=== PATIENT | female | born 1940 | race Caucasian/White ===

== ENCOUNTER 2018-12-12 02:09 | Emergency (ER) | payer MEDICARE ==
[~2018-12-12] VITALS: Ht 162.6 cm; Wt 80.6 kg
[~2018-12-12 02:09] MED LIST: ASPI-496 PO; DIPH25CA61 PO; FEXO60TA9 PO; LOSA25TA25 PO; MELA5TAB19 PO; METF500T17 PO; METO25TA2 PO; OMEP-110 PO; RALO60TA12 PO; ROSU10TA2 PO; TIZA2CAP2 PO; TRAM-47 PO
[2018-12-12] MEDS ORDERED: ROSU5TAB PO (02:38)
[2018-12-12] MEDS ORDERED: GLIP2.5T16 PO (02:38)
[2018-12-12] MEDS ORDERED: GABA300C10 PO (02:38)
[2018-12-12] MEDS ORDERED: ONDA4TAB7 PO (02:38)
[2018-12-12] MEDS ORDERED: LEVO88TA4 PO (02:38)
[2018-12-12] MEDS ORDERED: SODIUM CHLORIDE FLUSH 10ML SYR IVF ONE (03:00)
--- NOTE | 2018-12-12 03:15 | NUR ---
PT IN HOSPITAL GOWN. PT ON VITALS MACHINE. IV STARTED. LABS BEING DRAWN AT THIS TIME. PT ABLE TO PROVIDE URINE SAMPLE. URINE SENT TO LAB.
[2018-12-12 03:23] LABS: BASOPHILS # (AUTO) 0.05 x10^3/uL (0-0.1); BASOPHILS % (AUTO) 1 % (0-1); EOSINOPHILS # (AUTO) 0.38 x10^3/uL (0-0.4); EOSINOPHILS % (AUTO) 3 % (1-7); LYMPHOCYTES # (AUTO) 1.79 x10^3/uL (1-3.4); LYMPHOCYTES % (AUTO) 16 % (22-44); MD NO; MEAN CORPUSCULAR HEMOGLOBIN 30.7 pg (27.0-34.8); MEAN CORPUSCULAR HGB CONC 33.8 g/dL (32.4-35.8); MEAN CORPUSCULAR VOLUME 90.9 fL (80-100); MEAN PLATELET VOLUME 8.8 fL (7.4-10.4); MONOCYTES # (AUTO) 0.91 x10^3/uL (0.2-0.8); MONOCYTES % (AUTO) 8 % (2-9); NEUTROPHILS # (AUTO) 8.33 x10^3/uL (1.8-6.8); NEUTROPHILS % (AUTO) 73 % (42-75); PLATELET COUNT 233 x10^3/uL (130-400); RED BLOOD COUNT 4.96 x10^6/uL (3.82-5.3); RED CELL DISTRIBUTION WIDTH 12.9 % (9.6-15.2)
[2018-12-12 03:23] LABS: MICROSCOPIC AUTO
[2018-12-12 03:24] LABS: CULTURE INDICATED? NO
[2018-12-12 03:33] LABS: ALANINE AMINOTRANSFERASE 23 U/L (12-78); ALBUMIN 3.8 g/dL (3.4-5.0); ANION GAP 5 mmol/L (5-15); CALCIUM 8.7 mg/dL (8.5-10.1); CHLORIDE 111 mmol/L (98-107); CREATININE 1.15 mg/dL (0.55-1.02)
[2018-12-12 03:35] LABS: ALKALINE PHOSPHATASE 78 U/L (45-117); BILIRUBIN,TOTAL 0.2 mg/dL (0.2-1.0)
--- NOTE | 2018-12-12 04:50 | NUR ---
PT RESTING CALMLY IN BED. PT MADE AWARE CT HAS YET TO BE RESULTED. WILL CONTINUE TO MONITOR.
--- NOTE | 2018-12-12 05:16 | NUR ---
STILLL AWAITING CT READ. CT CONTACTED, STATED IS IN LINE TO BE READ HOWEVER RADIOLOGIST ARE SWITCHING SHIFTS. PT RESTING CALMLY IN BED, ERP AT BEDSIDE SPEAKING WITH PT.
[2018-12-12] MEDS ORDERED: OMNIPAQUE 350 MG/ML, 100ML BOTTLE ONE (05:52)
[2018-12-12 06:34] VITALS: BP 134/104
== END 2018-12-12 06:37 | disposition home or self-care (01) ==
LOC: ED 03:50
DX: N20.1 Calculus of ureter (principal); Z90.89 Acquired absence of other organs; Z90.710 Acquired absence of both cervix and uterus
CPT/HCPCS: 36415; 74177; 80053; 81001; 83690; 85025; 99284; Q9967

== ENCOUNTER 2019-01-17 09:50 | Observation (INO) | payer MEDICARE ==
[~2019-01-17] VITALS: Ht 162.6 cm; Wt 78.0 kg
[~2019-01-17 09:50] MED LIST changes: +GABA300C10 PO; +GLIP2.5T16 PO; +LEVO88TA4 PO; +ONDA4TAB7 PO; +ROSU5TAB PO
--- NOTE | 2019-01-17 10:22 | NUR ---
PATIENT AMB WITH STEADY GAIT TO BATHROOM, UA COLLECTED AND SENT TO LAB.
--- NOTE | 2019-01-17 10:27 | NUR ---
PATIENT PRESENTS TO ED TODAY FOR PAIN X 1-2 WEEKS, WORSE PAST 2 DAYS WITH N/V. PATIENT REPORTS PAIN STARTED AFTER SWITCHING FROM GLIPIZIDE TO JARDIANCE AND TRULICITY FOR DM II. HX OF DIVERTICULITIS, HIATAL SURGERY 2 YEARS AGO, BOWEL/BLADDER SURGERY, AND KIDNEY STONES 1 MONTH AGO. SPOUSE AT BEDSIDE, AWAITING MD ORDERS, CALL LIGHT WITHIN REACH. Addendum: 01/17/19 at 1243 by ANKUSH DECORATING CONSULTANT ON PATIENT.
[2019-01-17] MEDS ORDERED: SODIUM CHLORIDE FLUSH 10ML SYR IVF ONE (10:30)
--- NOTE | 2019-01-17 10:44 | NUR ---
PATIENT TO XRAY VIA Aj NASH+JACKELIN.
[2019-01-17] MEDS ORDERED: MORPHINE SULFATE 4 MG/ML, 1ML ONE (10:47)
[2019-01-17] MEDS ORDERED: ONDANSETRON 2MG/ML, 2ML ONE (10:47)
[2019-01-17 10:58] LABS: ALANINE AMINOTRANSFERASE 18 U/L (12-78); ALBUMIN 3.6 g/dL (3.4-5.0); ANION GAP 8 mmol/L (5-15); CALCIUM 8.3 mg/dL (8.5-10.1); CHLORIDE 112 mmol/L (98-107); CREATININE 1.13 mg/dL (0.55-1.02)
[2019-01-17] MEDS ORDERED: ONDANSETRON 2MG/ML, 2ML IVPush ONE (11:00)
[2019-01-17 11:03] LABS: ALKALINE PHOSPHATASE 74 U/L (45-117); BILIRUBIN,TOTAL 0.4 mg/dL (0.2-1.0); MEAN CORPUSCULAR HEMOGLOBIN 30.2 pg (27.0-34.8); MEAN CORPUSCULAR HGB CONC 32.2 g/dL (32.4-35.8); MEAN CORPUSCULAR VOLUME 93.5 fL (80-100); MEAN PLATELET VOLUME 8.9 fL (7.4-10.4); PLATELET COUNT 249 x10^3/uL (130-400); RED BLOOD COUNT 4.97 x10^6/uL (3.82-5.3); RED CELL DISTRIBUTION WIDTH 13.1 % (9.6-15.2); TOTAL PROTEIN 6.9 g/dL (6.4-8.2); TROPONIN I < 0.015 ng/mL (0.000-0.045)
[2019-01-17] MEDS: MORPHINE SULFATE 4 MG/ML, 1ML IVPush PRN ×2 (11:07→14:45)
[2019-01-17 11:14] LABS: MICROSCOPIC INDICATED
[2019-01-17 11:16] LABS: CULTURE INDICATED? YES
--- NOTE | 2019-01-17 11:27 | NUR ---
AWAITING RESULTS. SUPPLEMENTAL O2 APPLIED, VS UPDATED IN CHART. PATIENT SITTING IN GURNEY, NAD NOTED.
[2019-01-17 11:33] LABS: BASOPHILS # (AUTO) 0.05 x10^3/uL (0-0.1); BASOPHILS % (AUTO) 0 % (0-1); EOSINOPHILS # (AUTO) 0.24 x10^3/uL (0-0.4); EOSINOPHILS % (AUTO) 2 % (1-7); LYMPHOCYTES # (AUTO) 2.52 x10^3/uL (1-3.4); LYMPHOCYTES % (AUTO) 19 % (22-44); MD SCAN; MONOCYTES # (AUTO) 1.06 x10^3/uL (0.2-0.8); MONOCYTES % (AUTO) 8 % (2-9); NEUTROPHILS # (AUTO) 9.12 x10^3/uL (1.8-6.8); NEUTROPHILS % (AUTO) 70 % (42-75)
--- NOTE | 2019-01-17 11:44 | NUR ---
TASK RN: PT HELPED TO RESTROOM. ALL RESULTS BACK, AWAITING RECHECK
--- NOTE | 2019-01-17 11:59 | NUR ---
FSBS-70. MD AWARE. PATIENT TO BE ADMIT, AWAITING ADMIT ORDER. PATIENT SITTING IN GURNEY, NAD NOTED. PATIENT UPDATED ON POC. VS UPDATED IN CHART.
[2019-01-17] MEDS ORDERED: CEFTRIAXONE PMX 1GM/50ML 50 ML IV ONE (12:00)
[2019-01-17] MEDS ORDERED: EMPA10TA PO (12:04)
[2019-01-17] MEDS ORDERED: DULA0.75 INJ (12:05)
[2019-01-17] MEDS ORDERED: CEFTRIAXONE PMX 1GM/50ML 50 ML ONE (12:27)
[2019-01-17] MEDS ORDERED: LABETALOL 5MG/ML, 20ML IVPush PRN (12:30)
[2019-01-17] MEDS ORDERED: LIDODERM 5% PATCH TD PRN (12:30)
[2019-01-17] MEDS ORDERED: HYDROcodone/APAP 5/325 TABLET PO PRN (12:30)
[2019-01-17] MEDS ORDERED: DEXTROSE 4 GM TAB.CHEW PO PRN (12:30)
[2019-01-17] MEDS ORDERED: hydrALAzine 20 MG/ML, 1ML IVPush PRN (12:30)
[2019-01-17] MEDS ORDERED: GABAPENTIN 300 MG CAPSULE PO PRN (12:30)
[2019-01-17] MEDS ORDERED: GLUCAGON 1 MG IM PRN (12:30)
[2019-01-17] MEDS ORDERED: SODIUM CHLORIDE FLUSH 10ML SYR IVF PRN (12:30)
[2019-01-17] MEDS ORDERED: DEXTROSE 50%, 50ML SYRINGE IVPush PRN (12:30)
[2019-01-17] MEDS ORDERED: NITROGLYCERIN 0.4 MG BOTTLE (25 TABS) SL PRN (12:30)
[2019-01-17] MEDS ORDERED: ACETAMINOPHEN 325 MG TABLET PO PRN (12:30)
[2019-01-17] MEDS ORDERED: NITROGLYCERIN 0.4 MG/SPRAY SL PRN (12:30)
--- NOTE | 2019-01-17 12:41 | NUR ---
NEW ORDERS, ABX ADMINISTERED PER MD ORDER. NO BLOOD CULTURES NEEDED PER ERP. PATIENT TO BE ADMITTED, SPOUSE/PATIENT UPDATED ON POC. PATIENT SITTING IN GURNEY, NAD NOTED, REPORTS PAIN FEELS BETTER.
--- NOTE | 2019-01-17 13:17 | NUR ---
DIABETIC TRAY PROVIDED TO PATIENT PER REQUEST.
--- NOTE | 2019-01-17 13:45 | NUR ---
REPORT TO ALIYAH AGUILERA.
[2019-01-17 14:00] VITALS: BP 129/77
[2019-01-17] MEDS: ENOXAPARIN 40 MG/0.4 ML SQ SCH (14:44)
[2019-01-17 15:01] VITALS: BP 121/77
[2019-01-17] MEDS: NS + 20MEQ KCL 1,000 ML IV SCH (15:35)
[2019-01-17] MEDS: INSULIN LISPRO 100 UNITS/ML, PEN SQ-INSULIN SCH ×2 (16:00→20:59)
[2019-01-17 16:40] LABS: TROPONIN I < 0.015 ng/mL (0.000-0.045)
[2019-01-17 19:42] VITALS: BP 121/78
[2019-01-17] MEDS: SODIUM CHLORIDE FLUSH 10ML SYR IVF SCH (20:58)
[2019-01-17] MEDS ORDERED: ATORVASTATIN 20 MG TABLET PO SCH (21:00)
[2019-01-17] MEDS ORDERED: GABAPENTIN 300 MG CAPSULE PO SCH (21:00)
[2019-01-17] MEDS ORDERED: DIPHENHYDRAMINE 25 MG CAPSULE ONE (22:48)
[2019-01-17 22:55] LABS: TROPONIN I < 0.015 ng/mL (0.000-0.045)
[2019-01-17] MEDS ORDERED: DIPHENHYDRAMINE 25 MG CAPSULE PO PRN (23:00)
[2019-01-18 01:08] VITALS: BP 132/80
[2019-01-18] MEDS: NS + 20MEQ KCL 1,000 ML IV SCH (01:26)
[2019-01-18] MEDS ORDERED: LEVOTHYROXINE 88 MCG TABLET PO SCH (06:00)
[2019-01-18 06:14] LABS: ANION GAP 5 mmol/L (5-15); CALCIUM 8.2 mg/dL (8.5-10.1); CHLORIDE 114 mmol/L (98-107); CREATININE 1.01 mg/dL (0.55-1.02)
[2019-01-18] MEDS: INSULIN LISPRO 100 UNITS/ML, PEN SQ-INSULIN SCH ×3 (07:00→16:00)
[2019-01-18 07:14] LABS: BASOPHILS # (AUTO) 0.03 x10^3/uL (0-0.1); BASOPHILS % (AUTO) 0 % (0-1); EOSINOPHILS # (AUTO) 0.37 x10^3/uL (0-0.4); EOSINOPHILS % (AUTO) 4 % (1-7); LYMPHOCYTES # (AUTO) 2.18 x10^3/uL (1-3.4); LYMPHOCYTES % (AUTO) 25 % (22-44); MD NO; MEAN CORPUSCULAR HEMOGLOBIN 30.1 pg (27.0-34.8); MEAN CORPUSCULAR HGB CONC 31.8 g/dL (32.4-35.8); MEAN CORPUSCULAR VOLUME 94.7 fL (80-100); MEAN PLATELET VOLUME 8.7 fL (7.4-10.4); MONOCYTES % (AUTO) 9 % (2-9); NEUTROPHILS # (AUTO) 5.21 x10^3/uL (1.8-6.8); NEUTROPHILS % (AUTO) 61 % (42-75); PLATELET COUNT 221 x10^3/uL (130-400); RED BLOOD COUNT 4.54 x10^6/uL (3.82-5.3); RED CELL DISTRIBUTION WIDTH 12.9 % (9.6-15.2)
[2019-01-18] MEDS ORDERED: PANTOPROZOLE 40MG TABLET PO SCH (07:30)
[2019-01-18 07:36] VITALS: BP 105/70
[2019-01-18] MEDS: SODIUM CHLORIDE FLUSH 10ML SYR IVF SCH (08:36)
[2019-01-18] MEDS ORDERED: METOPROLOL SUCCINATE 25 MG TAB.ER.24H PO SCH (09:00)
[2019-01-18] MEDS ORDERED: SENNA/DOCUSATE TABLET PO SCH (10:00)
[2019-01-18] MEDS ORDERED: POLYETHYLENE GLYCOL 17 GM PACKET PO PRN (10:30)
[2019-01-18] MEDS ORDERED: CEFTRIAXONE PMX 1GM/50ML 50 ML IV SCH (12:00)
[2019-01-18] MEDS ORDERED: POLY17PO5 PO (12:10)
[2019-01-18] MEDS ORDERED: CEFD300C37 PO (12:10)
[2019-01-18] MEDS ORDERED: SENN-177 PO (12:10)
[2019-01-18] MEDS: ENOXAPARIN 40 MG/0.4 ML SQ SCH (14:00)
[2019-01-18 15:39] VITALS: BP 123/82
[2019-01-18] MEDS ORDERED: CEFDINIR 300 MG CAPSULE PO SCH (21:00)
== END 2019-01-18 18:17 | disposition home or self-care (01) ==
LOC: ED 12:04 → EDIP 12:05 → INTOOBSV 12:05 → UNDOADMOB 12:05 → ED 12:11 → EDIP 12:20 → 5SO 13:52
PROVIDERS: ADMIT Hospitalist; ATTEND Hospitalist
DX: N30.90 Cystitis, unspecified without hematuria (principal); I11.0 Hypertensive heart disease with heart failure; I50.30 Unspecified diastolic (congestive) heart failure; R00.2 Palpitations; E78.5 Hyperlipidemia, unspecified; K59.00 Constipation, unspecified; N17.9 Acute kidney failure, unspecified; E11.9 Type 2 diabetes mellitus without complications; F70 Mild intellectual disabilities; I89.0 Lymphedema, not elsewhere classified; E89.0 Postprocedural hypothyroidism; N89.8 Other specified noninflammatory disorders of vagina; R11.2 Nausea with vomiting, unspecified; Z88.8 Allergy status to other drugs, medicaments and biological substances; Z87.442 Personal history of urinary calculi; Z90.710 Acquired absence of both cervix and uterus; Z79.899 Other long term (current) drug therapy
CPT/HCPCS: 36415; 74022; 80048; 80053; 81001; 82962; 83605; 83690; 83735; 84443; 84484; 85025; 87077; 87086; 87186; 93005; 93306; 96361; 96365; 96366; 96372; 96375; 96376; 99284; G0378; J0696; J1650; J2270; J2405; J3480; Q0163

== ENCOUNTER 2019-02-15 12:57 | Emergency (ER) | payer MEDICARE ==
[~2019-02-15] VITALS: Ht 162.6 cm; Wt 73.2 kg
[~2019-02-15 12:57] MED LIST changes: +CEFD300C37 PO; +DULA0.75 INJ; +EMPA10TA PO; +POLY17PO5 PO; +SENN-177 PO
--- NOTE | 2019-02-15 13:35 | NUR ---
PT WC'D TO ROOM 17 W/ C/O ABD PAIN THROUGHOUT STARTED 5 MONTHS AGO. PT WAS SENT TO SEE HER PCP AND SAW A UROLOGIST YESTERDAY. PT WAS PLACED ON NITROFURANTOIN YESTERDAY FOR UTI. PT ALSO HAS HX KIDNEY STONE THAT WAS IN HER BLADDER A WHILE BACK. PT STATES "I HAVE A UTI I CAN'T GET RID OF". PT RESTING ON GURNEY. WARM BLANKET PROVIDED. MONITORS APPLIED. ANGELITO MANZO LICENSED LOAN OFFICER STUDENT AT BEDSIDE.
[2019-02-15 13:46] VITALS: BP 127/68
--- NOTE | 2019-02-15 14:16 | NUR ---
ERP DR. MCPHERSON AT BEDSIDE.
== END 2019-02-15 14:42 | disposition home or self-care (01) ==
LOC: ED 14:25
DX: B37.3 Candidiasis of vulva and vagina (principal); R31.9 Hematuria, unspecified; R11.0 Nausea; E11.9 Type 2 diabetes mellitus without complications; Z90.89 Acquired absence of other organs; Z90.49 Acquired absence of other specified parts of digestive tract; Z90.710 Acquired absence of both cervix and uterus
CPT/HCPCS: 82962; 99283

== ENCOUNTER 2019-03-20 08:14 | Outpatient (CLI) | payer MEDICARE ==
[~2019-03-20 08:14] MED LIST changes: +MELA5TAB14 PO; -MELA5TAB19 PO; +REGADENOSON 0.4 MG/5 ML SYRINGE ONE
== END 2019-03-20 23:59 | disposition home or self-care (01) ==
LOC: CFH 08:14
PROVIDERS: ATTEND Internal Medicine Cardiovascular Disease
DX: R07.9 Chest pain, unspecified (principal)
CPT/HCPCS: 78452; 93017; A9502; J2785